=== PATIENT | male | born 1965 | race Caucasian/White ===

== ENCOUNTER 2016-09-29 15:30 | Outpatient (RCR) | payer OTHER, BC ==
[~2016-09-29 15:30] MED LIST: ALEVE 220MG220 MG PO; ALLEGRA-D 12 HO1 TER PO; BACLOFEN PO; COPAXONE 20M20 MG/M1 SQ; DILANTIN 100MG100 MG PO; FLONASE0.05 MG/AC NS; FLOVENT DI50 MCG/Act IH; LIORESAL 1010 MG/TAB PO; LIORESAL20 MG PO; NASONEX SPRAY17 GM NS; NKA; XANAX .25M0.25 MG/TA PO; XANAX 1MG1 MG PO; [UNRECOGNIZED DRUG - OTHER]
== END 2016-10-05 | disposition still patient (30) ==
LOC: WSOT
DX: S63.27 Dislocation of unspecified interphalangeal joint of finger (principal); X58.XXXD Exposure to other specified factors, subsequent encounter

== ENCOUNTER 2016-10-06 09:07 | Outpatient (RCR) | payer OTHER, BC | END 2016-10-25 12:36 | disposition still patient (30) | LOC: WSOT 09:07 | DX: S63.257D Unspecified dislocation of left little finger, subsequent encounter (principal); X58.XXXD Exposure to other specified factors, subsequent encounter ==

== ENCOUNTER 2016-12-19 16:30 | Outpatient (RCR) | payer OTHER, BC ==
[2016-12-17 17:05] LABS: HEMATOCRIT 40.5 % (42.0-52.0); HEMOGLOBIN 13.5 g/dl (13.5-18.0); MEAN CELL VOLUME 90 fl (80.0-100.0); MEAN CORPUSCULAR HEMOGLOBIN 30 pg (27.0-31.0); MEAN CORPUSCULAR HGB CONC 33 g/dl (33.0-37.0); PLATELET COUNT 315 K/mm3 (130-400); RED BLOOD COUNT 4.49 M/mm3 (4.20-5.60); REDCELL DISTRIBUTION WIDTH-CV 12.2 % (11.5-14.5); WHITE BLOOD COUNT 6.5 K/mm3 (4.8-10.8)
[2016-12-17 17:14] LABS: CREATININE, serum 0.74 mg/dL (0.66-1.25); POTASSIUM 4.1 mmol/L (3.4-5.0)
[2016-12-17 17:26] VITALS: BP 141/79; PULSE 78; TEMP 98.2
[~2016-12-19] VITALS: Ht 172.7 cm; Wt 85.9 kg
[2016-12-19 12:28] VITALS: BP 151/85; PULSE 85; TEMP 97.5
[2016-12-19 13:39] LABS: CALCIUM 9.3 mg/dL (8.4-10.2); CREATININE, serum 0.73 mg/dL (0.66-1.25); POTASSIUM 3.5 mmol/L (3.4-5.0)
== END 2017-03-17 | disposition home or self-care (01) ==
LOC: EUO
PROVIDERS: Family Medicine
DX: Z45.2 Encounter for adjustment and management of vascular access device (principal)
CPT/HCPCS: J2930; J7050

== ENCOUNTER 2017-05-19 21:22 | Emergency (ER) | payer BC ==
[~2017-05-19] VITALS: Ht 172.7 cm; Wt 83.2 kg
[2017-05-19 21:23] VITALS: BP 129/73; PULSE 83; TEMP 98.3
== END 2017-05-19 22:45 | disposition home or self-care (01) ==
LOC: COL.ER 21:22
DX: T16.2XXA Foreign body in left ear, initial encounter (principal); X58.XXXA Exposure to other specified factors, initial encounter

== ENCOUNTER 2017-09-16 15:45 | Outpatient (RCR) | payer BC | END 2017-11-03 | LOC: MKS.ESL.PT | DX: M47.22 Other spondylosis with radiculopathy, cervical region (principal) ==

== ENCOUNTER 2017-12-31 15:26 | Outpatient (RCR) | payer BC ==
[2017-12-30 15:21] VITALS: BP 122/76; PULSE 77; TEMP 98
[~2017-12-31] VITALS: Ht 172.7 cm; Wt 88.1 kg
[2018-01-01 12:41] VITALS: BP 147/71; PULSE 92; TEMP 97.9
== END 2018-01-02 08:17 | disposition home or self-care (01) ==
LOC: EUO 01-02 08:17
DX: G35 Multiple sclerosis (principal)
CPT/HCPCS: J2930

== ENCOUNTER 2018-07-05 07:30 | Outpatient (RCR) | payer BC | END 2018-09-28 | disposition home or self-care (01) | LOC: WSPT | DX: H81.10 Benign paroxysmal vertigo, unspecified ear (principal) ==

== ENCOUNTER 2019-03-16 07:00 | Outpatient (RCR) | payer BC ==
[2019-03-14 07:37] VITALS: BP 140/69; PULSE 77; TEMP 98.2
[2019-03-14 07:57] LABS: HEMATOCRIT 41.8 % (42.0-52.0); MEAN CELL VOLUME 92 fl (80.0-100.0); MEAN CORPUSCULAR HEMOGLOBIN 31 pg (27.0-31.0); MEAN CORPUSCULAR HGB CONC 34 g/dl (33.0-37.0); MEAN PLATELET VOLUME 9.3 fl (7.4-10.4); PLATELET COUNT 302 K/mm3 (130-400); RED BLOOD COUNT 4.56 M/mm3 (4.20-5.60); REDCELL DISTRIBUTION WIDTH-CV 12.8 % (11.5-14.5)
[2019-03-14 08:00] LABS: CALCIUM 9.1 mg/dL (8.4-10.2); CREATININE, serum 0.69 (0.66-1.25); POTASSIUM 4.5 mmol/L (3.4-5.0)
[2019-03-15 08:05] VITALS: BP 135/69; PULSE 72; TEMP 97.7
[~2019-03-16] VITALS: Ht 172.7 cm; Wt 84.2 kg
[2019-03-16 07:46] LABS: CALCIUM 8.8 mg/dL (8.4-10.2); CREATININE, serum 0.64 (0.66-1.25); POTASSIUM 3.9 mmol/L (3.4-5.0)
[2019-03-16 07:58] VITALS: BP 120/66; PULSE 75; TEMP 97.4
--- NOTE | 2019-03-16 09:07 | NUR ---
Order states pt to have BMP eery 4 days while on oral steroids.Per pt he will do labs at [facility] and arrange for Dr to send order to [facility].
== END 2019-03-16 09:08 | disposition home or self-care (01) ==
LOC: EUO 07:00
PROVIDERS: Family Medicine
DX: G35 Multiple sclerosis (principal); Z79.899 Other long term (current) drug therapy
CPT/HCPCS: J2930

== ENCOUNTER 2019-06-05 14:00 | Outpatient (RCR) | payer BC ==
[2019-05-15 17:38] VITALS: BP 130/76; PULSE 92; TEMP 98.2
[2019-05-16 16:38] VITALS: BP 150/74; PULSE 85; TEMP 97.5
[2019-05-17 16:42] VITALS: BP 135/79; PULSE 89
[2019-05-18 12:33] VITALS: BP 132/75; PULSE 81; TEMP 98.2
[2019-05-19 08:58] VITALS: BP 103/67; PULSE 92; TEMP 98.2
[2019-05-20 08:48] VITALS: BP 135/81; PULSE 76; TEMP 97.8
[2019-05-21 16:20] VITALS: BP 130/78; PULSE 91; TEMP 98.7
[2019-05-21 16:35] LABS: BASO # 0.1 (0.0-0.2); BASO % 1.2 % (0.0-2.0); EOS # 0.1 (0.0-0.7); EOS % 2.3 % (0-4.0); GRAN # 2.9 (1.4-6.5); GRAN % 47.8 % (42.2-75.2); HEMATOCRIT 39.5 % (42.0-52.0); MEAN CELL VOLUME 91 fl (80.0-100.0); MEAN CORPUSCULAR HEMOGLOBIN 30 pg (27.0-31.0); MEAN CORPUSCULAR HGB CONC 33 g/dl (33.0-37.0); MEAN PLATELET VOLUME 8.9 fl (7.4-10.4); MONO # 0.9 (0.1-0.6); MONO % 14.2 % (1.7-9.3); PLATELET COUNT 488 K/mm3 (130-400); RED BLOOD COUNT 4.33 M/mm3 (4.20-5.60); REDCELL DISTRIBUTION WIDTH-CV 12.6 % (11.5-14.5)
[2019-05-21 16:48] LABS: BILIRUBIN,TOTAL 0.2 mg/dL (0.0-1.0); C-REACTIVE PROTEIN 1.9 mg/dL (0.0-0.9); CREATININE, serum 0.83 (0.66-1.25)
[2019-05-21 16:58] LABS: ERYTHROCYTE SEDIMENTATION RATE 27 mm/hr (0-30)
[2019-05-22 16:36] VITALS: BP 130/76; PULSE 87; TEMP 98.5
--- NOTE | 2019-05-22 16:55 | NUR ---
PER PT REPORT HE SEES ID TOMORROW.APT SCHEDULED FOR NEXT WEEK DRESSING CHANGE.PT REPORTS HE WILL LET US KNOW IF PICC LINE IS TO BE REMOVED SOONER.
[2019-05-23 07:01] VITALS: BP 95/62; PULSE 93; TEMP 98.9
[2019-05-23 16:39] VITALS: BP 131/68; PULSE 84; TEMP 98.8
[2019-05-24 16:30] VITALS: BP 120/74; PULSE 82; TEMP 97.8
[2019-05-25 12:21] VITALS: BP 122/73; PULSE 75; TEMP 98
[2019-05-26 08:38] VITALS: BP 120/65; PULSE 85; TEMP 97.9
[2019-05-27 08:43] VITALS: BP 119/72; PULSE 79; TEMP 97.4
[2019-05-28 08:30] VITALS: BP 132/82; PULSE 78; TEMP 98.1
[2019-05-28 09:29] LABS: BASO # 0.1 (0.0-0.2); BASO % 1.8 % (0.0-2.0); EOS # 0.3 (0.0-0.7); EOS % 6.9 % (0-4.0); GRAN # 1.9 (1.4-6.5); GRAN % 38.5 % (42.2-75.2); HEMOGLOBIN 12.8 g/dl (13.5-18.0); LYMPH % 40.6 % (20.0-51.0); MEAN CELL VOLUME 90 fl (80.0-100.0); MEAN CORPUSCULAR HEMOGLOBIN 29 pg (27.0-31.0); MEAN CORPUSCULAR HGB CONC 33 g/dl (33.0-37.0); MEAN PLATELET VOLUME 9.5 fl (7.4-10.4); MONO # 0.6 (0.1-0.6); PLATELET COUNT 426 K/mm3 (130-400); RED BLOOD COUNT 4.35 M/mm3 (4.20-5.60); REDCELL DISTRIBUTION WIDTH-CV 12.5 % (11.5-14.5)
[2019-05-28 09:48] LABS: BILIRUBIN,TOTAL 0.4 mg/dL (0.0-1.0); C-REACTIVE PROTEIN 1.2 mg/dL (0.0-0.9); CREATININE, serum 0.66 (0.66-1.25)
[2019-05-29 16:19] VITALS: BP 133/70; PULSE 83; TEMP 97.9
[2019-05-30 16:39] VITALS: BP 120/69; PULSE 79; TEMP 98
[2019-05-31 16:14] VITALS: BP 131/69; PULSE 72; TEMP 98.1
[2019-06-01 13:13] VITALS: BP 124/74; PULSE 83; TEMP 98.4
[2019-06-02 08:30] VITALS: BP 113/73; PULSE 83; TEMP 97.7
[2019-06-03 08:40] VITALS: BP 119/76; PULSE 66; TEMP 98.1
--- NOTE | 2019-06-03 08:51 | NUR ---
PICC dressing reinforced with paper tape. We will await changing the dressing until tomorrow so Rachael with [facility] can re-assess and change the dressing.
[2019-06-04 16:25] LABS: BASO # 0.1 (0.0-0.2); EOS # 0.2 (0.0-0.7); EOS % 4.2 % (0-4.0); GRAN # 1.9 (1.4-6.5); HEMOGLOBIN 11.8 g/dl (13.5-18.0); LYMPH % 42.6 % (20.0-51.0); MEAN CELL VOLUME 91 fl (80.0-100.0); MEAN CORPUSCULAR HEMOGLOBIN 29 pg (27.0-31.0); MEAN CORPUSCULAR HGB CONC 32 g/dl (33.0-37.0); MEAN PLATELET VOLUME 8.8 fl (7.4-10.4); MONO # 0.6 (0.1-0.6); MONO % 13.2 % (1.7-9.3); PLATELET COUNT 298 K/mm3 (130-400); RED BLOOD COUNT 4.04 M/mm3 (4.20-5.60); REDCELL DISTRIBUTION WIDTH-CV 12.8 % (11.5-14.5)
[2019-06-04 16:30] LABS: HEMATOCRIT 36.6 % (42.0-52.0)
[2019-06-04 16:38] VITALS: BP 127/73; PULSE 72; TEMP 98.2
[2019-06-04 16:50] LABS: CREATININE, serum 0.79 (0.66-1.25)
[2019-06-04 17:18] LABS: ERYTHROCYTE SEDIMENTATION RATE 10 mm/hr (0-30)
[~2019-06-05] VITALS: Ht 175.3 cm; Wt 83.5 kg
[~2019-06-05 14:00] MED LIST changes: +ROCEPHIN 2GM VIAL21 IJ
[2019-06-05 15:16] VITALS: BP 121/76; PULSE 96; TEMP 97.9
--- NOTE | 2019-06-05 18:03 | NUR ---
Order received to dc abx.
== END 2019-06-05 18:03 | disposition home or self-care (01) ==
LOC: EUO 14:00
PROVIDERS: Family Medicine; Internal Medicine Infectious Disease
DX: R65.10 Systemic inflammatory response syndrome (SIRS) of non-infectious origin without acute organ dysfunction (principal)
CPT/HCPCS: J0696

== ENCOUNTER → 2019-06-21 | Outpatient (CLI) | payer BC | LOC: ZCOL.LAB 13:15 | DX: M25.532 Pain in left wrist (principal) ==

== ENCOUNTER 2019-08-21 07:20 | Outpatient (CLI) | payer BC ==
[~2019-08-21] VITALS: Ht 175.3 cm; Wt 87.5 kg
[2019-08-21] MEDS ORDERED: LIPITOR 10MG10 MG PO (08:07)
[2019-08-21] MEDS ORDERED: MOBIC15 MG PO (08:08)
[2019-08-21 08:10] VITALS: BP 143/95; PULSE 80; TEMP 98.3
[2019-08-21 08:11] LABS: HEMATOCRIT 40.1 % (42.0-52.0); HEMOGLOBIN 13.2 g/dl (13.5-18.0); MEAN CELL VOLUME 90 fl (80.0-100.0); MEAN CORPUSCULAR HEMOGLOBIN 30 pg (27.0-31.0); MEAN CORPUSCULAR HGB CONC 33 g/dl (33.0-37.0); MEAN PLATELET VOLUME 8.5 fl (7.4-10.4); PLATELET COUNT 311 K/mm3 (130-400); RED BLOOD COUNT 4.48 M/mm3 (4.20-5.60)
[2019-08-21 08:24] LABS: CREATININE, serum 0.75 (0.66-1.25); POTASSIUM 4.6 mmol/L (3.4-5.0)
[2019-08-21 08:25] LABS: PROTHROMBIN TIME 11.2 SECONDS (9.7-12.8)
[2019-08-21 09:25] VITALS: BP 162/92; PULSE 64
--- NOTE | 2019-08-21 09:25 | NUR ---
DAVID complete and report received from Lorena Unger RN. Pt resting well in bed.
[2019-08-21 09:40] VITALS: BP 162/94; PULSE 66
[2019-08-21 09:55] VITALS: BP 163/94; PULSE 61
[2019-08-21 10:10] VITALS: BP 157/98; PULSE 69
--- NOTE | 2019-08-21 10:10 | NUR ---
Pt has ambulated, voided and darrius PO intake s n/v. PIV removed with catheter intact.
--- NOTE | 2019-08-21 10:25 | NUR ---
Pt discharged per w/c by nurse with friend Sav Rosas.
== END 2019-08-21 11:42 | disposition home or self-care (01) ==
LOC: COL.RAD 07:20
PROVIDERS: Internal Medicine Cardiovascular Disease
DX: R50.9 Fever, unspecified (principal)
CPT/HCPCS: J2704; J7120

== ENCOUNTER → 2020-05-19 | Outpatient (CLI) | payer BC ==
[~2020-05-19] MED LIST changes: +LIPITOR 10MG10 MG PO; +MOBIC15 MG PO
== END ==
LOC: COL.RAD 11:05
DX: G35 Multiple sclerosis (principal); H53.2 Diplopia
CPT/HCPCS: A9585

== ENCOUNTER 2020-06-06 16:00 | Outpatient (RCR) | payer BC ==
[2020-06-04 15:53] VITALS: BP 131/82; PULSE 79; TEMP 98.7
[2020-06-04 16:14] LABS: HEMATOCRIT 37.4 % (42.0-52.0); HEMOGLOBIN 12.3 g/dl (13.5-18.0); MEAN CELL VOLUME 90 fl (80.0-100.0); MEAN CORPUSCULAR HEMOGLOBIN 30 pg (27.0-31.0); MEAN CORPUSCULAR HGB CONC 33 g/dl (33.0-37.0); MEAN PLATELET VOLUME 8.7 fl (7.4-10.4); PLATELET COUNT 286 K/mm3 (130-400); RED BLOOD COUNT 4.17 M/mm3 (4.20-5.60)
[2020-06-04 16:20] LABS: CREATININE, serum 0.81 (0.66-1.25); POTASSIUM 4.5 mmol/L (3.4-5.0)
[2020-06-05 16:03] VITALS: BP 133/79; PULSE 74; TEMP 98.4
[~2020-06-06] VITALS: Ht 175.3 cm; Wt 91.0 kg
[2020-06-06 16:04] VITALS: BP 129/73; PULSE 86; TEMP 98
[2020-06-06 16:45] LABS: CALCIUM 8.7 mg/dL (8.4-10.2); CREATININE, serum 0.81 (0.66-1.25); POTASSIUM 3.5 mmol/L (3.4-5.0)
[2020-06-06 17:14] VITALS: BP 133/77; PULSE 82; TEMP 98
== END 2020-09-02 | disposition home or self-care (01) ==
LOC: EUO
PROVIDERS: Psychiatry & Neurology Neurology
DX: G35 Multiple sclerosis (principal); Z79.899 Other long term (current) drug therapy
CPT/HCPCS: J2930

== ENCOUNTER 2021-01-05 06:57 | Outpatient (RCR) | payer BC ==
[2021-01-03 08:21] LABS: HEMATOCRIT 40.4 % (42.0-52.0); HEMOGLOBIN 13.3 g/dl (13.5-18.0); MEAN CELL VOLUME 94 fl (80.0-100.0); MEAN CORPUSCULAR HEMOGLOBIN 31 pg (27.0-31.0); MEAN CORPUSCULAR HGB CONC 33 g/dl (33.0-37.0); MEAN PLATELET VOLUME 8.7 fl (7.4-10.4); PLATELET COUNT 308 K/mm3 (130-400); RED BLOOD COUNT 4.31 M/mm3 (4.20-5.60); REDCELL DISTRIBUTION WIDTH-CV 12.4 % (11.5-14.5)
[2021-01-03 08:32] LABS: CALCIUM 9.1 mg/dL (8.4-10.2); CREATININE, serum 0.79 (0.66-1.25); POTASSIUM 4.3 mmol/L (3.4-5.0)
[2021-01-03 09:00] VITALS: BP 155/78; PULSE 70
[2021-01-04 07:39] VITALS: BP 134/79; PULSE 76; TEMP 98.6
[~2021-01-05] VITALS: Ht 175.3 cm; Wt 83.4 kg
[~2021-01-05 06:57] MED LIST changes: +CELEXA 20MG20 MG/TAB PO
[2021-01-05 07:24] LABS: CALCIUM 8.9 mg/dL (8.4-10.2); CREATININE, serum 0.8 (0.66-1.25); POTASSIUM 3.8 mmol/L (3.4-5.0)
[2021-01-05 07:41] VITALS: BP 135/74; PULSE 88; TEMP 97.9
--- NOTE | 2021-01-05 08:41 | NUR ---
IV DC'd with catheter intact prior to discharge. Pt ambulates out with steady gait, ordered solumedrol course is completed.
== END 2021-01-05 09:10 | disposition home or self-care (01) ==
LOC: EUO 06:57
PROVIDERS: Family Medicine
DX: G35 Multiple sclerosis (principal); J45.901 Unspecified asthma with (acute) exacerbation
CPT/HCPCS: J2930; J7050

== ENCOUNTER 2021-07-06 14:15 | Outpatient (RCR) | payer BC | END 2021-07-20 08:52 | disposition home or self-care (01) | LOC: WSPT 14:15 | DX: G35 Multiple sclerosis (principal) ==

== ENCOUNTER → 2024-05-14 | Outpatient (CLI) | payer OTHER | LOC: COL.RAD 09:08 | DX: S83.241A Other tear of medial meniscus, current injury, right knee, initial encounter (principal); M17.11 Unilateral primary osteoarthritis, right knee; M67.873 Other specified disorders of tendon, right ankle and foot ==